=== PATIENT | female | born 1990 | race Caucasian/White ===

== ENCOUNTER 2016-10-14 23:24 | Emergency (ER) | payer OTHER, BC ==
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
[~2016-10-14 23:24] MED LIST: BACTRIM DS TABL1 TAB PO; CLEOCIN PO; FIORICET 50-321 EACH PO; KEFLEX PO; KETOPROFEN PO; PEN-VEE K PO; PERCOCET5/325 PO; PHENERGAN25 M1 PO; PRENATAL MULITV1 TAB PO
== END 2016-10-15 06:27 | disposition home or self-care (01) ==
LOC: CED 23:24
DX: S13.4XXA Sprain of ligaments of cervical spine, initial encounter (principal); V43.52XA Car driver injured in collision with other type car in traffic accident, initial encounter; Y92.9 Unspecified place or not applicable
CPT/HCPCS: 72040; 72072; 72125; 84703; 99284

== ENCOUNTER → 2016-11-17 | Outpatient (CLI) | payer OTHER ==
--- NOTE | ~2016-11-17 | CR230 ---
[facility] [[email or web address] A Service of [facility] & [facility] RADIOLOGY TEXT RESULTS PATIENT: MARCUS FERNANDES LOCATION: [facility] : [birth year] UNIT #: [id number] AGE: [address]: Abbi Gandhi SEX: F ORDER DR: [id number] [address] [address] [id number] O MR#: [id number] Acc #: [id number] NAME: MARCUS FERNANDES : 1990 SEX: F STUDY DATE/TIME: 11/17/2016 14:17 UNIT: [facility] ROOM: STUDY DESCRIPTION: CR Shoulder Min 2 View Rt Attending Physician: Abbi Gandhi A.P.R.N. Referring Physician: Abbi Gandhi A.P.R.N. Ordering Physician: Abbi Gandhi A.P.R.N. Primary Care Physician: Abbi Gandhi A.P.R.N. MEDICAL IMAGING REPORT This report is preliminary unless electronic signature is present. EXAM Right shoulder 3 views, 11/17/2016 HISTORY Right shoulder pain beginning June 03, 2016, pulled a muscle lifting a door. FINDINGS AP view with internal and external rotation of the shoulder girdle shows satisfactory relationship of the humeral head and glenoid fossa. The joint space is normal. There is no identifiable fracture or dislocation or bony destructive process about the shoulder girdle anatomy. The acromioclavicular joint is normal. There is no radiopaque foreign body in the region. IMPRESSION Normal shoulder. Dictated by... Jae Cavazos M.D. THIS IS AN ELECTRONICALLY VERIFIED REPORT Jae Cavazos M.D. at 11/18/2016 7:22 AM BEN/eric TD: 11/18/2016 02:15 JOB #: [id number] MEDICAL IMAGING REPORT Page 1 of 1
== END | disposition home or self-care (01) ==
LOC: SRAD 14:11
DX: M25.511 Pain in right shoulder (principal)
CPT/HCPCS: 73030